=== PATIENT | male | born 1960 | race Caucasian/White ===

== ENCOUNTER 2022-04-28 10:52 | Day surgery (SDC) | payer BC ==
[~2022-04-28] VITALS: Ht 190.5 cm; Wt 98.6 kg
[~2022-04-28 10:52] MED LIST: MULTI VITAMINS1 TAB PO; VITAMIND3 5000 PO; ZYRTEC 10MG10 MG PO
[2022-04-28 12:22] VITALS: BP 150/91; PULSE 63; TEMP 98.5
[2022-04-28 14:08] VITALS: BP 165/95; PULSE 84; TEMP 97.5
[2022-04-28 14:23] VITALS: BP 148/93; PULSE 86
[2022-04-28 14:38] VITALS: BP 148/81; PULSE 92
[2022-04-28 14:53] VITALS: BP 150/76; PULSE 92
--- NOTE | 2022-04-28 15:00 | NUR ---
1408 RETURNS TO ROOM 2 PER CART. AWAKE, ALERT. HOB ELEVATED 30 DEGREES. RESP UNLABORED. VITAL SIGNS OBTAINED. ABD SOFT. DENIES ABD PAIN OR URINARY URGENCY. IN ROOM. CALL LIGHT AT SIDE. 1420 TOLERATES PO JUICE AND MUFFIN WITHOUT NAUSEA 1435 DISCHARGE INSTRUCTIONS REVIEWED. PATIENT VERBALIZES UNDERSTANDING. COPY PROVIDED IN DISCHARGE FOLDER 5467 SITS ON EDGE OF BED. DRESSES SELF, THEN AMBULATES TO BATHROOM PATIENT VOIDS WITHOUT DIFFICULTY "PINK URINE".
[2022-04-28 17:29] VITALS: BP 154/97; PULSE 83; TEMP 97.9
== END 2022-04-28 15:04 | disposition home or self-care (01) ==
LOC: SDCO 10:52
DX: C67.8 Malignant neoplasm of overlapping sites of bladder (principal); R31.0 Gross hematuria
CPT/HCPCS: J0360; J0690; J1100; J2405; J2704; J3010; J7120

== ENCOUNTER 2023-10-08 12:52 | Emergency (ER) | payer BC ==
[~2023-10-08] VITALS: Ht 185.4 cm; Wt 89.5 kg
[2023-10-08 13:13] LABS: MEAN CELL VOLUME 93 fl (80.0-100.0); MEAN CORPUSCULAR HGB CONC 32 g/dl (33.0-37.0); PLATELET COUNT 365 K/mm3 (130-400); RED BLOOD COUNT 1.65 M/mm3 (4.20-5.60); REDCELL DISTRIBUTION WIDTH-CV 17.9 % (11.5-14.5)
[2023-10-08] MEDS ORDERED: Pantoprazole 80 MG in NS 100 ML IV ONE (13:15)
[2023-10-08 13:23] LABS: HEMATOCRIT 15.4 % (42.0-52.0); HEMOGLOBIN 4.9 g/dl (13.5-18.0); INR 1.4 (0.8-3.0); MEAN CORPUSCULAR HEMOGLOBIN 30 pg (27-31); PROTHROMBIN TIME 15.3 SECONDS (9.7-12.8)
[2023-10-08 13:43] LABS: ANISOCYTOSIS 2+; BAND 3 % (0-10); LYMPHOCYTE 10 % (20.0-51.0); METAMYELOCYTE 4 % (0-0); NEUTROPHILS 82 % (42.0-75.2); PLATELET ESTIMATE NORMAL (NORMAL)
[2023-10-08 13:44] LABS: ALBUMIN 2.5 g/dL (3.4-4.8); BILIRUBIN,TOTAL 4.1 mg/dL (0.2-1.2); CALCIUM 8.8 mg/dL (8.4-10.2); CREATININE, serum 1.55 mg/dL (0.72-1.25); HYPOCHROMIA 1+; POTASSIUM 4.6 mEq/L (3.5-4.5); TOTAL PROTEIN 5.7 g/dl (6.2-8.1)
[2023-10-08 14:44] VITALS: BP 127/72; PULSE 65; TEMP 98.9
[2023-10-08 15:02] VITALS: BP 130/70; PULSE 71; TEMP 98.7
[2023-10-08 16:02] VITALS: BP 121/71; PULSE 92; TEMP 98.8
[2023-10-08 17:17] LABS: MEAN CORPUSCULAR HGB CONC 33 g/dl (33.0-37.0); MEAN PLATELET VOLUME 9.7 fl (7.4-10.4); PLATELET COUNT 345 K/mm3 (130-400); RED BLOOD COUNT 2.06 M/mm3 (4.20-5.60); REDCELL DISTRIBUTION WIDTH-CV 16.9 % (11.5-14.5)
[2023-10-08 17:18] LABS: HEMATOCRIT 18.1 % (42.0-52.0); MEAN CORPUSCULAR HEMOGLOBIN 29 pg (27-31)
[2023-10-08 17:19] LABS: MEAN CELL VOLUME 88 fl (80.0-100.0)
[2023-10-08 17:36] VITALS: BP 113/69; PULSE 71; TEMP 98.9
[2023-10-08 17:51] VITALS: BP 128/82; PULSE 71; TEMP 98.7
[2023-10-08 18:00] VITALS: BP 133/73; PULSE 73
== END 2023-10-08 18:05 | disposition short-term general hospital (02) ==
LOC: COL.ER 12:52
PROVIDERS: Physician Assistant
DX: K92.2 Gastrointestinal hemorrhage, unspecified (principal); K81.9 Cholecystitis, unspecified; Z79.01 Long term (current) use of anticoagulants
CPT/HCPCS: J2470; P9016